=== PATIENT | female | born 1945 | race Caucasian/White ===

== ENCOUNTER 2018-01-22 10:11 | Outpatient (CLI) | payer MEDICARE | END 2018-01-22 10:12 | disposition home or self-care (01) | LOC: BICMAMMO 10:11 | PROVIDERS: ATTEND Family Medicine | DX: Z12.31 Encounter for screening mammogram for malignant neoplasm of breast (principal); Z00.00 Encounter for general adult medical examination without abnormal findings; R92.1 Mammographic calcification found on diagnostic imaging of breast; M85.852 Other specified disorders of bone density and structure, left thigh; M85.851 Other specified disorders of bone density and structure, right thigh; Z78.0 Asymptomatic menopausal state; Z80.3 Family history of malignant neoplasm of breast | CPT/HCPCS: 77063; 77067; 77080 ==

== ENCOUNTER 2019-01-23 09:08 | Outpatient (CLI) | payer MEDICARE ==
--- NOTE | 2019-01-23 11:57 | MMO ---
Bilateral MAMMO Bilat Screen DDI+ANKIT. CLINICAL HISTORY: Patient is 73 years old and is seen for screening. The patient has the following family history of breast cancer: paternal aunt. The patient has no personal history of cancer. VIEWS: The views performed were: bilateral craniocaudal with tomosynthesis and bilateral mediolateral oblique with tomosynthesis. FILMS COMPARED: The present examination has been compared to prior imaging studies performed at [facility] on 01/22/2018, at [facility] on 02/14/2009, and at [facility] on 08/15/2007. MAMMOGRAM FINDINGS: There are scattered fibroglandular densities. Benign calcifications are noted bilaterally. There are no suspicious masses, suspicious calcifications, or new areas of architectural distortion. IMPRESSION: THERE IS NO MAMMOGRAPHIC EVIDENCE OF MALIGNANCY. A ROUTINE FOLLOW-UP MAMMOGRAM IN 1 YEAR IS RECOMMENDED. THE RESULTS OF THIS EXAM WERE SENT TO THE PATIENT. ACR BI-RADS Category 2 - Benign finding MAMMOGRAPHY NOTE: 1. A negative mammogram report should not delay a biopsy if a dominant of clinically suspicious mass is present. 2. Approximately 10% to 15% of breast cancers are not detected by mammography. 3. Adenosis and dense breasts may obscure an underlying neoplasm.
== END 2019-01-23 09:09 | disposition home or self-care (01) ==
LOC: BICMAMMO 09:08
PROVIDERS: ATTEND Family Medicine
DX: Z12.31 Encounter for screening mammogram for malignant neoplasm of breast (principal)
CPT/HCPCS: 77063; 77067

== ENCOUNTER 2019-03-12 11:31 | Outpatient (CLI) | payer MEDICARE ==
--- NOTE | 2019-03-12 14:36 | CT ---
CT ABDOMEN AND PELVIS WITH AND WITHOUT IV CONTRAST: HISTORY: Left lower quadrant pain. The patient was premedicated for iodine allergy. COMPARISON: Report from CT scan of 11/21/2017 is submitted from [facility]. No images are sub mitted for comparison. FINDINGS: The lung bases are unremarkable. The liver, spleen, and pancreas and right adrenal gland are normal. There is a 1 cm nodule arising from the left adrenal gland with an attenuation value of 3 Hounsfiel d units on the noncontrasted images, consistent with a benign adenoma. The gallbladder is not visual ized. No calculi are seen in the kidneys, ureters, or the urinary bladder. No hydroureteral nephrosis is n oted on either side. Bilateral renal masses are noted. These masses are hypodense and demonstrate n o postcontrast enhancement. No significant calcifications are seen. Thin internal septations cannot be excluded. The largest of these measure 3.2 cm arising from the inferior pole of the right kidney , 5.2 cm arising from the inferior pole of the left kidney, and 1.4 cm arising from the outer cortex of the left mid kidney. There is normal contrast excretion into the ureters and urinary bladder. No free air, free fluid, or lymphadenopathy is seen in the abdomen or pelvis. There are vascular lance cifications without evidence of aneurysmal dilatation of the abdominal aorta. The small bowel loops are not abnormally dilated. There is colonic diverticulosis without evidence of diverticulitis. A neurostimulator device is seen posterior to the L5 vertebra on the left. IMPRESSION: 1. Left adrenal adenoma. 2. No CT evidence of urinary calculi or obstruction. 3. Bilateral renal masses with benign characteristics. Renal ultrasound would be helpful. 4. Colonic diverticulosis. POS: TPC
== END 2019-03-12 11:32 | disposition home or self-care (01) ==
LOC: CT 11:31
PROVIDERS: ATTEND Family Medicine
DX: R10.32 Left lower quadrant pain (principal); N28.1 Cyst of kidney, acquired; D35.02 Benign neoplasm of left adrenal gland; N28.89 Other specified disorders of kidney and ureter; K57.30 Diverticulosis of large intestine without perforation or abscess without bleeding
CPT/HCPCS: 74178; 82565

== ENCOUNTER 2019-03-19 13:09 | Outpatient (CLI) | payer MEDICARE ==
--- NOTE | 2019-03-19 14:16 | ULT ---
ULTRASOUND RETROPERITONEUM COMPLETE: (RENAL) 03/19/19 HISTORY: 73-year-old female with bilateral renal masses found on CT. At least some are cysts. One of them is indeterminate. FINDINGS: Right kidney: 10 x 6 x 4.5 cm. Left kidney: 10.5 x 5 x 4.5 cm. No hydronephrosis bilaterally. 2.5 x 2 x 2 cm cyst exophytically protruding from right renal lower pole. 5 x 4 x 4.5 cm pedunculated cyst exophytically protruding from left renal lower pole. Both were demonstrated on the CT. On that CT, there was an exophytic, approximately 1.5 cm mass arising from the anterior cortical surf jaquan of the left renal mid-lower pole. That had a density of approximately 40 HU. That particular lesi on is too small to visualize on ultrasound. The urinary bladder appears normal. IMPRESSION: 1. Bilateral exophytic renal cysts, one on each side, 2.5 cm on the right and 5 cm on the left. 2. The much smaller lesion with density of 40 HU arising from the surface of the left kidney on CT of 03/12/19 is too small to be visible on the ultrasound. Recommend serial follow-up CT's with and without contrast (renal mass protocol), beinning in six months. It may represent a very small hemorrh agic renal cyst, but small renal cell carcinoma is not entirely excluded. SCOTT Garcia POS: JOHANA
== END 2019-03-19 13:10 | disposition home or self-care (01) ==
LOC: BICULT 13:09
PROVIDERS: ATTEND Family Medicine
DX: N28.1 Cyst of kidney, acquired (principal); N28.9 Disorder of kidney and ureter, unspecified
CPT/HCPCS: 76770

== ENCOUNTER 2019-03-27 09:03 | Inpatient (IN) | payer MEDICARE ==
[2019-03-27 09:51] LABS: #Basophils 0.1 thou/uL (0.0-0.2); #Eosinphils 0.2 thou/uL (0.0-0.7); #Lymphocytes 1.5 thou/uL (1.20-3.40); #Monocytes 0.7 thou/uL (0.11-0.59); #Neutrophils 3.1 thou/uL (1.40-6.50); %Basophils 1.7 % (0.0-1.0); %Eosinophils 3.5 % (0.0-10.0); %Lymphocytes 26.4 % (21.0-51.0); %Monocytes 12.1 % (0.0-10.0); %Neutrophils 56.4 % (42.0-75.0); Mean Corpuscular HGB CONC 34.3 g/dL (32.0-36.0); Mean Corpuscular Volume 93.4 fL (78.0-98.0); Mean Platelet Volume 7.7 fL (7.4-10.4); Platelet Count 235 thou/uL (130-400); RBC Distribution Width 11.6 % (11.5-14.5); Red Blood Cell (RBC) Count 4.36 mill/uL (4.20-5.40); White Blood Cell (WBC) Count 5.6 thou/uL (4.8-10.8)
[2019-03-27] MEDS ORDERED: metroNIDAZOLE 500 MG/100 ML BAG ONE ×2 (09:52→10:11)
[2019-03-27] MEDS ORDERED: Morphine 4 MG/ML VIAL ONE (10:11)
[2019-03-27 10:13] LABS: ALT (SGPT) 18 U/L (8-55); AST (SGOT) 17 U/L (5-34); Albumin 3.9 g/dL (3.4-4.8); Alkaline Phosphatase 76 U/L (40-150); Anion Gap 12 mmol/L (10-20); BUN (Urea Nitrogen) 19 mg/dL (9.8-20.1); Bilirubin, Total 0.5 mg/dL (0.2-1.2); Calc. Creatinine Clearance 0 mL/min (70-130); Calcium 9.2 mg/dL (7.8-10.44); Carbon Dioxide 25 mmol/L (23-31); Chloride 103 mmol/L (98-107); Estimated GFR-MDRD 73; Globulin 3.1 g/dL (2.4-3.5); Glucose 94 mg/dL (83-110); Lipase 10 U/L (8-78); Potassium 3.7 mmol/L (3.5-5.1); Sodium 136 mmol/L (136-145)
[2019-03-27] MEDS ORDERED: MEROPENEM 1 GM/50 ML 1 GM in Premix Bag 1 BAG IVPB SCH ×2 (10:15→14:00)
--- NOTE | 2019-03-27 11:41 | HP ---
PRIMARY CARE PHYSICIAN: Dr. Jero Subramanian. REASON FOR ADMISSION: Sent by primary care physician for lower abdominal pain for evaluation of IV antibiotic therapy. HISTORY OF PRESENT ILLNESS: A 73-year-old female, who has history of hypertension and who reports that she has a history of several recurrent episodes of diverticulitis requiring short course of antibiotic therapy and she feels better. She does not remember how many episodes. She had diverticulitis in her past, but she reports too many times. This patient most recently had abdominal pain, which was predominantly in the left lower quadrant. At that time, primary care physician ordered CT abdomen and pelvis, which was about in February 09, 2018 and the patient was given Augmentin for 10 days. Since then, the patient was not taking any antibiotic therapy, but her lower abdominal pain predominantly in left lower quadrant was keep on getting worse. For almost one month, she was not on antibiotic therapy or any specific therapy and she was thinking herself that she has diverticulitis and she saw her family physician in [place], who is general practitioner, who advised her to go to ER for IV antibiotic therapy. The patient was evaluated by Dr. Jero Subramanian and he sent this patient to ER for evaluation of IV antibiotic therapy. The patient reports that 1-1/2 months ago she was in [place] for vacation and at that time, she was eating different kind of foods and since then her abdominal pain has precipitated. She never had any hematochezia. She never had any weight loss. She never had any nausea, vomiting, fever, chills. She denies any abdominal distention. The patient does have varicose vein and she reports intermittent ankle swelling. The patient does have allergy to IV contrast and she does not want to go for further IV contrast. Her last IV contrast CT abdomen study was done in October 2017 in [place]. The patient does not have any recent colonoscopy. She denies any family history of colon cancer. She denies any UTI symptoms. She does report constipation and sometimes diarrhea. She feels abdominal distention subjectively and she does report some nausea, but no vomiting. REVIEW OF SYSTEMS: CONSTITUTIONAL: Negative for weight loss or gain, ability to conduct usual activities. SKIN: Negative for rash, itching. EYES: Negative for double vision, pain. ENT/MOUTH: Negative for nose bleeding, neck stiffness, pain, tenderness. CARDIOVASCULAR: Negative for palpitations, dyspnea on exertion, orthopnea. RESPIRATORY: Negative for shortness of breath, wheezing, cough, hemoptysis, fever or night sweats. GASTROINTESTINAL: Negative for poor appetite, abdominal pain, heartburn, nausea, vomiting, constipation, or diarrhea. GENITOURINARY: Negative for urgency, frequency, dysuria, nocturia. MUSCULOSKELETAL: Negative for pain, swelling. NEUROLOGIC/PSYCHIATRIC: Negative for anxiety, depression. ALLERGY/IMMUNOLOGIC: Negative for skin rash, bleeding tendency. Please see my HPI for pertinent positive and negative. All other review of systems reviewed and negative except as mentioned in HPI. PAST MEDICAL HISTORY: History of recurrent diverticulitis, colonic diverticulosis, hypertension, history of hepatitis A. PAST SURGICAL HISTORY: Cholecystectomy, hysterectomy, knee surgery, rotator cuff repair, lumbar spine surgery, toe surgery. PAST PSYCHIATRIC HISTORY: Reviewed and negative. SOCIAL HISTORY: The patient drinks alcohol socially. She denies any tobacco abuse. She denies any other illicit drug abuse. FAMILY HISTORY: No strong family history of premature coronary artery disease, stroke, or cancer. ALLERGIES: THE PATIENT IS ALLERGIC TO CIPRO, SULFA DRUGS WELL IODINE CONTRAST. EMERGENCY ROOM COURSE: The patient has received meropenem and Flagyl IV fluid and morphine 4 mg. CURRENT HOME MEDICATION: Valsartan with hydrochlorothiazide 160/25 one tablet p.o. daily. PHYSICAL EXAMINATION: VITAL SIGNS: Currently, blood pressure 147/82, pulse 81, respiratory rate 19, temperature 98.1, saturation 95% on room air. Weight 90.7 kg. GENERAL: The patient is currently alert and oriented. No acute distress. HEENT: Head; normocephalic, atraumatic. Eyes; pupils round, reactive to light. Extraocular muscles are intact. ENT; oropharynx within normal limits. Moist mucous membranes. No oral lesion. No pharyngeal erythema. No exudate. NECK: Supple. No JVD. No thyromegaly. No carotid bruit. No jugular venous distention. LUNGS: Clear to auscultation without any rhonchi or rales. CARDIAC: S1, S2 regular. No murmur. No gallop. No rub. ABDOMEN: The patient does have left lower quadrant mild discomfort on deep palpation, but no rebound tenderness. No guarding. No rigidity. No peritoneal sign. No distention. Bowel sounds present. No organomegaly. No mass. BACK: No CVA tenderness. UPPER EXTREMITIES: Passive movement of all joints are normal. Lower extremity, no edema. Good distal pulsation. SKIN: No skin rash. HEMATOLOGICAL SYSTEM: No lymphadenopathy. NEUROLOGIC: Nonfocal examination. The patient does have a varicose vein on the lower extremity with stress ankle edema noted. SIGNIFICANT LABORATORY DATA: CBC; WBC 5.6, hemoglobin 14.0, platelet 235. BMP; sodium 136, potassium 3.7, chloride 103, carbon dioxide 25, BUN 19, creatinine 0.78, glucose 94, calcium 9.2. Lactic acid 1.4. LFT; AST 17, ALT 18, alkaline phosphatase 76, albumin 3.9, lipase 10. The patient had CT abdomen and pelvis on March 12, 2019. At that time, the patient was found with diverticulosis, bilateral renal mass. The patient also had an abdomen ultrasound with renal ultrasound, which showed exophytic renal cyst. ASSESSMENT/PLAN: Impression; 1. Lower abdominal pain. The patient has clinical diagnosis of diverticulitis and she was given 10 days of Augmentin therapy without any significant improvement. The patient had most recent CT abdomen and pelvis on March 12, 2019, which showed diverticulosis without any diverticulitis. At this point, primary care physician sent this patient for evaluation of IV antibiotic therapy. She does not have any sepsis picture. She does not have any leukocytosis. She does not have any abnormal laboratory pictures at this point, and clinically she is stable. We will consult rotor pilot for further evaluation to see if patient needs any repeat imaging, clinically does not suspect any complication like abscess perforation. We will ask rotor pilot if further colonoscopy needed or not for rule out any other etiology for her recurrent diverticulitis. At this point, we will presumably continue with meropenem and Flagyl, gentle IV fluid, and pain control with morphine. Further investigation and treatment will defer to rotor pilot. 2. Hypertension. We will continue valsartan with hydrochlorothiazide 160/25 one tablet p.o. daily. 3. Deep venous thrombosis prophylaxis. Lovenox 40 mg subcu daily. 4. GI prophylaxis. Pepcid 20 mg p.o. b.i.d. CODE STATUS: The patient is full code. The patient's daughter is her surrogate decision maker. DISPOSITION PLAN: Based on clinical course. We are expecting the patient's stay in hospital more than 48 hours. Plan of care discussed with the patient and family member at bedside. We will also do stool for infection workup to rule out any infectious etiology. Job ID: [id number]
[2019-03-27 13:30] LABS: Bilirubin Negative (Negative); Blood, Urine Negative (Negative); Clarity CLEAR (Clear); Glucose, Urine (Dipstick) Negative (Negative); Leukocyte Negative (Negative); Nitrite Negative (Negative); Protein, Urine (Dipstick) Negative (Neg-Trace); Specific Gravity, Urine 1.009 (1.002-1.036); Urobilinogen 0.2 mg/dL (0.2-1.0); pH, Urine 6.5 (5.0-9.0)
[2019-03-27] MEDS ORDERED: Senokot S 8.6-50 MG TAB PO PRN (14:03)
[2019-03-27] MEDS ORDERED: Bisacodyl 5 MG TAB PO PRN (14:03)
[2019-03-27] MEDS ORDERED: Ondansetron PF 4 MG/2 ML Vial IVP PRN (14:03)
[2019-03-27] MEDS ORDERED: Bisacodyl 10 MG SUPP PR PRN (14:03)
[2019-03-27] MEDS ORDERED: Zolpidem Tartrate 5 MG TAB PO PRN (14:03)
[2019-03-27] MEDS ORDERED: Acetaminophen 325 MG TAB PO PRN (14:03)
[2019-03-27] MEDS ORDERED: Morphine 4 MG/ML VIAL SLOW IVP PRN (14:03)
[2019-03-27 14:29] VITALS: BMI 35.2
[2019-03-27] MEDS: Sodium Chloride 0.9% 1,000 ML IV SCH (14:55)
[2019-03-27] MEDS ORDERED: GoLYTELY 4,000 ml Bottle PO SCH (15:30)
[2019-03-27] MEDS: metroNIDAZOLE 500 MG in Premix Bag 1 BAG IVPB SCH (17:37)
[2019-03-27] MEDS: Famotidine 20 MG TAB PO SCH (20:09)
[2019-03-27] MEDS: MEROPENEM 1 GM/50 ML 1 GM in Premix Bag 1 BAG IVPB SCH (20:09)
[2019-03-27] MEDS: Ondansetron ODT 4 MG TAB PO PRN (21:52)
[2019-03-27] MEDS: Calcium Carbonate 500 MG ChewTAB PO PRN (21:53)
--- NOTE | 2019-03-27 22:10 | CON ---
DATE OF CONSULTATION: 03/27/2019 REQUESTING PHYSICIAN: Rivas Crane MD. REASON FOR CONSULTATION: Abdominal pain and diverticulitis. HISTORY OF PRESENT ILLNESS: Carmita Tse is a very pleasant 73-year-old woman who was admitted to the hospital today with persistent left lower quadrant pain over the past month and a half. She has a history of multiple abdominal surgeries including cholecystectomy at age 20, hysterectomy with unilateral oophorectomy and then subsequent repeat surgery for lysis of adhesions and removal of the other ovary. She says that at that time, she had to have a short segment of colon removed as well. She says this was many years ago. She has not had a colonoscopy for many years, at least 10 years. She reports that she has had recurrent episodes of diverticulitis in the past. Usually, she will be treated with a course of antibiotics and symptoms will resolve. She says back in 10/2017 in [place], she had a CT scan and this documented acute diverticulitis. About a month and a half ago, she started having left lower quadrant pain while on a trip to [place], this failed to resolve with dietary measures. She saw her PCP and was given a course of Augmentin which she finished for 10 days. She says that unfortunately, symptoms did not really resolve or even improve throughout the course of antibiotics. She continued to have persistent left lower quadrant pain really without any significant diarrhea or constipation. No melena or hematochezia. No nausea or vomiting. Then 2 weeks ago, she finally had a CT of the abdomen and pelvis, this was performed with contrast, she was premedicated because she has a contrast allergy. The CT scan showed colonic diverticulosis but actually no evidence of diverticulitis at that time. She does have bilateral renal cyst and the followup ultrasound confirmed this. However, the left lower quadrant pain has persisted. She was admitted today for ongoing pain and was started on IV antibiotics with meropenem and Flagyl. She is hesitant to undergo any repeat imaging with contrast due to her contrast allergy. Labs show normal white blood cell count. She is afebrile and hemodynamically stable. REVIEW OF SYSTEMS: Full review of systems including constitutional, head, eyes, ears, nose, throat, GI, , cardiovascular, respiratory, musculoskeletal, neurologic systems is negative except as noted in the HPI. PAST MEDICAL HISTORY: 1. Hypertension, hepatitis A, knee surgery, back surgery, rotator cuff repair, cholecystectomy at age 20, hysterectomy with unilateral oophorectomy, laparoscopy with lysis of adhesions and unilateral oophorectomy, evidently with segmental colon resection at that time, years ago. 2. Recurrent diverticulitis, last demonstrated on CT scan 10/2017. SOCIAL HISTORY: Alcohol use is social. No smoking. No drug use. FAMILY HISTORY: Negative for colon malignancy. ALLERGIES: CIPROFLOXACIN, SULFA, IV CONTRAST. OUTPATIENT MEDICATIONS: Valsartan/hydrochlorothiazide. INPATIENT MEDICATIONS: 1. IV meropenem. 2. IV Flagyl. 3. IV morphine p.r.n. PHYSICAL EXAMINATION: VITAL SIGNS: Temperature 97.9, pulse 59, blood pressure 143/82, 94% oxygen saturation on room air. GENERAL: A 73-year-old woman lying in bed comfortably, appearing well, in no acute distress. SKIN: No jaundice, no rashes were palpable. HEENT: Eyes, no scleral icterus. Extraocular movements intact. ENT; mucous membranes moist. No oral lesions. LYMPH: No submandibular, supraclavicular lymphadenopathy. Thyroid nontender to palpation. HEART: Regular rate and rhythm. LUNGS: Clear to auscultation bilaterally. ABDOMEN: Bowel sounds are hypoactive, but present. The abdomen is soft. There is tenderness to palpation in the left lower quadrant. No guarding or rebound tenderness. No hernia defect appreciated. Surgical scars are well healed. EXTREMITIES: No peripheral edema. VESSELS: Radial pulses 2+ bilaterally. NEURO: Cranial nerves 2 through 12 intact bilaterally. No focal deficits. LABORATORY STUDIES: WBC 5.6, hemoglobin 14.0, platelets 235. BUN 19, creatinine 1.78. LFTs all normal. Lipase normal at 10, lactic acid 1.4. Urinalysis negative. IMAGING STUDIES: She had a CT of the abdomen, pelvis with IV contrast 2 weeks ago on 03/12/2019. This showed diverticulosis with no evidence of diverticulitis. She had normal appearing liver, spleen and pancreas. Absent gallbladder. There was a 1 cm left adrenal adenoma, bilateral renal masses, and a left-sided neuro stimulator posterior to L5. On 03/19/2019, renal ultrasound showed multiple bilateral renal cysts as well as a smaller left renal lesion which was too small to characterize. ASSESSMENT AND PLAN: 1. Left lower quadrant pain, persistent over the past month and a half. 2. Prior history of diverticulitis. The patient's symptoms could certainly be consistent with recurrent diverticulitis. However, she failed to have any improvement with a full course of Augmentin several weeks ago, and notably, [address] with contrast did not show any evidence of diverticulitis. This is while the patient has remained symptomatic. It is possible she may be dealing more with a postinfectious irritable bowel syndrome rather than persistent diverticulitis. Also, consider other possible colonic pathology. Consider also the possibility that symptoms are related to intraabdominal adhesive disease and irritable bowel syndrome. Given that there was no evidence of inflammation on her recent CT scan, I think the best step at this point would be to proceed with diagnostic colonoscopy this hospital admission. We will try to avoid further IV contrast administration given her allergy. This is what the patient desired as well. We will plan for bowel preparation this evening and diagnostic colonoscopy tomorrow. In the meantime, I agree with the IV antibiotics for now. Further recommendations following colonoscopy. The risks and benefits of the procedure were discussed with the patient. She desires to proceed. Thank you for the consultation. Please call anytime with questions or concerns. Job ID: [id number]
[2019-03-28] MEDS: Calcium Carbonate 500 MG ChewTAB PO PRN (01:25)
[2019-03-28] MEDS: metroNIDAZOLE 500 MG in Premix Bag 1 BAG IVPB SCH ×3 (01:26→17:46)
[2019-03-28] MEDS: MEROPENEM 1 GM/50 ML 1 GM in Premix Bag 1 BAG IVPB SCH ×3 (03:43→20:53)
[2019-03-28] MEDS: Sodium Chloride 0.9% 1,000 ML IV SCH ×2 (03:44→17:56)
[2019-03-28 04:00] LABS: #Eosinphils 0.1 thou/uL (0.0-0.7); #Monocytes 0.5 thou/uL (0.11-0.59); #Neutrophils 4.5 thou/uL (1.40-6.50); %Basophils 0.5 % (0.0-1.0); %Eosinophils 1.6 % (0.0-10.0); %Lymphocytes 16.2 % (21.0-51.0); %Monocytes 7.7 % (0.0-10.0); %Neutrophils 74.1 % (42.0-75.0); Hemoglobin 13.1 g/dL (12.0-16.0); Mean Corpuscular HGB CONC 33.4 g/dL (32.0-36.0); Mean Corpuscular Hemoglobin 31.5 pg (27.0-31.0); Mean Corpuscular Volume 94.4 fL (78.0-98.0); Mean Platelet Volume 7.9 fL (7.4-10.4); Platelet Count 212 thou/uL (130-400); RBC Distribution Width 11.7 % (11.5-14.5); Red Blood Cell (RBC) Count 4.16 mill/uL (4.20-5.40); White Blood Cell (WBC) Count 6.1 thou/uL (4.8-10.8)
[2019-03-28 04:20] LABS: Anion Gap 10 mmol/L (10-20); BUN (Urea Nitrogen) 16 mg/dL (9.8-20.1); Calc. Creatinine Clearance 107 mL/min (70-130); Calcium 8.5 mg/dL (7.8-10.44); Carbon Dioxide 28 mmol/L (23-31); Chloride 104 mmol/L (98-107); Estimated GFR-MDRD 81; Glucose 110 mg/dL (83-110); Potassium 3.6 mmol/L (3.5-5.1); Sodium 138 mmol/L (136-145)
[2019-03-28] MEDS: Ondansetron ODT 4 MG TAB PO PRN (06:24)
[2019-03-28] MEDS: Enoxaparin Sodium 40 MG/0.4 ML SYRINGE SC SCH (07:38)
[2019-03-28] MEDS: Famotidine 20 MG TAB PO SCH ×2 (07:42→20:39)
[2019-03-28] MEDS: Valsartan 80 MG TAB PO SCH (07:55)
[2019-03-28] MEDS: Hydrochlorothiazide 25 MG TAB PO SCH (07:55)
[2019-03-28] MEDS ORDERED: Metoclopramide HCl 10 MG/2 ML VIAL ONE (09:21)
[2019-03-28] MEDS ORDERED: Famotidine/PF 20 mg/2ml Vial ONE (09:23)
[2019-03-28] MEDS ORDERED: metroNIDAZOLE 500 MG/100 ML BAG ONE (09:49)
[2019-03-28] MEDS ORDERED: Fentanyl 100 MCG/2 ML VIAL ONE (09:50)
[2019-03-28] MEDS ORDERED: Promethazine HCl 25 MG/ML VIAL ONE (09:50)
[2019-03-28] MEDS ORDERED: Promethazine HCl 25 MG/ML VIAL IM PRN (10:38)
[2019-03-28] MEDS ORDERED: Promethazine HCl 25 MG/ML VIAL SLOW IVP PRN (10:38)
[2019-03-28] MEDS ORDERED: Ondansetron HCl/PF 4 MG/2 ML Vial IVP PRN (10:38)
[2019-03-28] MEDS: Dicyclomine 10 MG CAP PO SCH ×3 (12:19→20:40)
--- NOTE | 2019-03-28 14:12 | PDOC.PN ---
- Subjective Encounter Start Date: 03/28/19 Encounter Start Time: 14:11 Pt seen for followup re: abdominal pain. Had colonoscopy, feels tired. - Objective Resuscitation Status - Order Detail: 03/27/19 10:43 Resuscitation Status Routine Resuscitation Status: FULL: Full Resuscitation MAR Reviewed: Yes Vital Signs & Weight: Vital Signs (12 hours) Temp Pulse Resp BP Pulse Ox 03/28/19 11:52 97.3 F L 61 18 131/76 93 L 03/28/19 11:06 97.5 F L 60 18 135/79 93 L 03/28/19 08:30 97.4 F L 59 L 16 126/60 95 03/28/19 03:50 97.5 F L 56 L 18 118/72 96 Weight Weight 205 lb I&O: 03/27/19 03/28/19 03/29/19 06:59 06:59 06:59 Intake Total 4180 Balance 4180 Result Diagrams: 03/28/19 03:42 03/28/19 03:42 Additional Labs: labs reviewed by me Phys Exam - Physical Examination Obese HEENT: moist MMs Neck: supple Respiratory: clear to auscultation bilateral Cardiovascular: RRR Gastrointestinal: soft Mild LLQ tenderness, no guarding or rigidity Neurological: moves all 4 limbs Psychiatric: normal affect Dx/Plan (1) Abdominal pain Code(s): R10.9 - UNSPECIFIED ABDOMINAL PAIN Status: Acute Comment: s/p colonoscopy, await report (2) Hypertension Code(s): I10 - ESSENTIAL (PRIMARY) HYPERTENSION Status: Chronic Comment: controlled - Plan * . Review of Systems - Review of Systems Cardiovascular: negative: chest pain, palpitations, orthopnea, paroxysmal nocturnal dyspnea, edema, light headedness Gastrointestinal: Abdominal Pain. negative: Nausea, Vomiting, Diarrhea, Constipation, Melena, Hematochezia - Medications/Allergies Allergies/Adverse Reactions: Allergies Allergy/AdvReac Type Severity Reaction Status Date / Time Influenza Virus Vaccines Allergy Mild Verified 03/27/19 14:32 Iodinated Contrast- Oral and Allergy Mild Hives Verified 03/27/19 14:26 IV Dye pneumococcal vaccine Allergy Mild Verified 03/27/19 14:32 ciprofloxacin [From Cipro] Allergy Headache Verified 05/05/14 13:41 ciprofloxacin HCl Allergy Headache Verified 05/05/14 13:41 [From Cipro] codeine Allergy RASH, Verified 05/05/14 13:41 HIVES, DIFFICULTY BREATHING ADHESIVES Allergy RASH, Uncoded 05/05/14 13:41 BLISTERING Medications: Current Medications Acetaminophen (Tylenol) 650 mg PO Q4H PRN PRN Reason: Headache/Fever/Mild Pain (1-3) Bisacodyl (Dulcolax) 10 mg PO DAILYPRN PRN PRN Reason: Constipation Bisacodyl (Dulcolax) 10 mg MI DAILYPRN PRN PRN Reason: Constipation Calcium Carbonate (Tums) 1,000 mg PO Q4H PRN PRN Reason: Heartburn or Indigestion Last Admin: 03/28/19 01:25 Dose: 1,000 mg Dicyclomine HCl (Bentyl) 10 mg PO QID [facility] Last Admin: 03/28/19 12:19 Dose: 10 mg Enoxaparin Sodium (Lovenox) 40 mg SC 0900 [facility] Last Admin: 03/28/19 07:38 Dose: Not Given Famotidine (Pepcid) 20 mg PO BID [facility] Last Admin: 03/28/19 07:42 Dose: 20 mg Hydrochlorothiazide (Hydrochlorothiazide) 25 mg PO DAILY [facility] Last Admin: 03/28/19 07:55 Dose: Not Given Sodium Chloride (Normal Saline 0.9%) 1,000 mls @ 70 mls/hr IV .[id number] [facility] Last Admin: 03/28/19 03:44 Dose: 1,000 mls Metronidazole 500 mg/ Device 100 mls @ 100 mls/hr IVPB 0200,1000,1800 [facility] Last Admin: 03/28/19 11:10 Dose: Not Given Meropenem 1 gm/ Device 50 mls @ 100 mls/hr IVPB 0400,1200,2000 [facility] Last Admin: 03/28/19 12:20 Dose: 50 mls Morphine Sulfate (Morphine) 4 mg SLOW IVP Q4H PRN PRN Reason: Pain Last Admin: 03/27/19 20:24 Dose: 4 mg Ondansetron HCl (Zofran Odt) 4 mg PO Q6H PRN PRN Reason: Nausea/Vomiting Last Admin: 03/28/19 06:24 Dose: 4 mg Ondansetron HCl (Zofran) 4 mg IVP Q6H PRN PRN Reason: Nausea/Vomiting Senna/Docusate Sodium (Senokot S) 2 tab PO BID PRN PRN Reason: Constipation Sodium Chloride (Flush - Normal Saline) 10 ml IVF Q12HR LONG Sodium Chloride (Flush - Normal Saline) 10 ml IVF PRN PRN PRN Reason: Saline Flush Valsartan (Diovan) 160 mg PO DAILY [facility] Last Admin: 03/28/19 07:55 Dose: Not Given Zolpidem Tartrate (Ambien) 5 mg PO HSPRN PRN PRN Reason: Insomnia
[2019-03-28] MEDS ORDERED: PROPOFOL 200 MG/20 ML VIAL ONE (14:42)
[2019-03-28] MEDS ORDERED: Ondansetron PF 4 MG/2 ML Vial ONE (14:42)
[2019-03-28] MEDS ORDERED: Dexamethasone 20 MG/5 ML VIAL ONE (14:42)
[2019-03-28] MEDS ORDERED: Lidocaine 1% PF 5 ML VIAL ONE (14:42)
[2019-03-28] MEDS ORDERED: Succinylcholine Chloride 20 MG/ML 10 ml SYRINGE FS ONE (14:42)
--- NOTE | 2019-03-28 16:28 | OP ---
DATE OF PROCEDURE: 03/28/2019 STRAP CUTTER SURGEON: None. PROCEDURE PERFORMED: Colonoscopy, diagnostic. INDICATIONS: 1. Left lower quadrant pain. 2. Prior history of diverticulitis. 3. History of intra-abdominal adhesive disease. 4. Last colonoscopy would have been more than 10 years ago. MEDICATIONS: See Anesthesia record. FINDINGS: After discussion of the risks, benefits, and alternatives of the procedure, informed consent was obtained and witnessed. Pre-endoscopic cardiopulmonary examination was satisfactory. Time-out was performed before sedation was achieved. Sedation was achieved with Anesthesia assistance in the endoscopy unit. The patient was under general anesthesia, endotracheally intubated. Digital rectal examination was performed, which was unremarkable. A Pentax adult colonoscope was inserted into the anus and passed forward to the cecum in the usual fashion. The cecal base was identified by the appendiceal orifice as well as the ileocecal valve. The terminal ileum was intubated and the ileal mucosa appeared normal. The colonoscope was slowly withdrawn in a gradual circumferential manner with careful examination of the entire colonic mucosa. The quality of the preparation was adequate. The colonic mucosa appears normal throughout. There were no polyps or mass lesions visualized. I was not able to discern any clear anastomosis in the colon. There is diverticulosis in the sigmoid colon, but I see no evidence of diverticulitis. Retroflexion in the rectum was unremarkable. The colonoscope was completely withdrawn and the patient allowed to recover. The patient tolerated the procedure well. There were no immediate postprocedure complications. IMPRESSION: 1. Sigmoid diverticulosis, without evidence of diverticulitis. 2. Otherwise, normal colonoscopy to the terminal ileum. 3. Consider her left lower quadrant pain is likely secondary to intraabdominal adhesive disease, or possibly secondary to postinfectious irritable bowel syndrome. RECOMMENDATIONS: 1. Antibiotics can be discontinued. 2. Advance diet as tolerated. 3. Trial of dicyclomine 10 to 20 mg by mouth 3 times daily as needed. 4. Okay for hospital discharge from a GI perspective. Job ID: [id number]
[2019-03-28] MEDS ORDERED: Triple Antibiotic Oint 1 GM Packet TOP PRN (21:46)
[2019-03-29] MEDS: Sodium Chloride 0.9% 1,000 ML IV SCH (01:06)
[2019-03-29] MEDS: metroNIDAZOLE 500 MG in Premix Bag 1 BAG IVPB SCH ×2 (01:09→08:59)
[2019-03-29] MEDS: MEROPENEM 1 GM/50 ML 1 GM in Premix Bag 1 BAG IVPB SCH (04:05)
[2019-03-29 08:54] VITALS: BP 125/74; TEMP 97.8
[2019-03-29] MEDS: Hydrochlorothiazide 25 MG TAB PO SCH (08:55)
[2019-03-29] MEDS: Dicyclomine 10 MG CAP PO SCH (08:55)
[2019-03-29] MEDS: Enoxaparin Sodium 40 MG/0.4 ML SYRINGE SC SCH (08:57)
[2019-03-29] MEDS: Valsartan 80 MG TAB PO SCH (08:58)
--- NOTE | 2019-03-29 11:23 | PRG ---
DATE OF SERVICE: 03/29/2019 SUBJECTIVE: Ms. Tse is feeling a lot better today. She denies any abdominal pain. Bowel movements are normal. No nausea or vomiting. She tolerated her breakfast just fine. OBJECTIVE: VITAL SIGNS: Temperature 97.8, pulse 73, blood pressure 125/74, and 96% oxygen saturation on room air. GENERAL: No acute distress. HEART: Regular rate and rhythm. LUNGS: Clear to auscultation bilaterally. ABDOMEN: Bowel sounds present. Soft and nontender to palpation throughout. EXTREMITIES: No peripheral edema. LABORATORY STUDIES: No new labs from this morning. Note that stool studies performed on admission did come back showing positive Campylobacter antigen. Otherwise, stool studies all negative. ASSESSMENT/PLAN: 1. Left lower quadrant pain, resolved this morning. 2. Sigmoid diverticulosis, without evidence of diverticulitis, otherwise normal colonoscopy performed yesterday. 3. Intraabdominal adhesive disease. The patient is doing well and I think can be discharged from the hospital today. I think it is likely that she did have a recent diverticulitis which was successfully treated now just experiencing some postinfectious irritable bowel syndrome, perhaps with some contribution from intraabdominal adhesive disease. No need for any other antibiotics. I think it would be reasonable for her to take dicyclomine 10 mg up to three times daily as needed. After discharge, she can follow up with me in the [facility] on an as-needed basis. GI will sign off, but please call back anytime with questions or concerns. Job ID: [id number]
== END 2019-03-29 12:35 | disposition home or self-care (01) | DRG 392 ==
LOC: ERS 09:03 → T4-B 10:10
PROVIDERS: ADMIT Internal Medicine; ATTEND Internal Medicine
PROC: 0DJD8ZZ Inspection of Lower Intestinal Tract, Via Natural or Artificial Opening Endoscopic (ICD-10-PCS; principal; 2019-03-28)
DX: K57.30 Diverticulosis of large intestine without perforation or abscess without bleeding (principal); I10 Essential (primary) hypertension; Z88.7 Allergy status to serum and vaccine; Z88.1 Allergy status to other antibiotic agents; Z91.041 Radiographic dye allergy status; Z88.5 Allergy status to narcotic agent; Z90.49 Acquired absence of other specified parts of digestive tract; Z88.2 Allergy status to sulfonamides; Z79.899 Other long term (current) drug therapy
CPT/HCPCS: 36415; 80048; 80053; 81003; 83605; 83690; 85025; 87045; 87046; 87324; 87328; 87329; 87449; 87899; J1650; J2185; J2270; J2550; J2765; J3010; Q0162; S0028

== ENCOUNTER 2023-02-20 12:28 | Outpatient (CLI) | payer MEDICARE | END 2023-02-20 12:29 | disposition home or self-care (01) | LOC: BICRAD 12:28 | PROVIDERS: ATTEND Nurse Practitioner Family | DX: M54.40 Lumbago with sciatica, unspecified side (principal); M47.816 Spondylosis without myelopathy or radiculopathy, lumbar region; Z98.1 Arthrodesis status | CPT/HCPCS: 72100 ==

== ENCOUNTER 2023-11-08 10:48 | Outpatient (CLI) | payer MEDICARE, OTHER | END 2023-11-08 10:49 | disposition home or self-care (01) | LOC: BICMRI 10:48 | PROVIDERS: ATTEND Family Medicine | DX: M79.661 Pain in right lower leg (principal) ==

== ENCOUNTER 2024-10-19 10:52 | Outpatient (CLI) | payer MEDICARE | END 2024-10-19 10:53 | disposition home or self-care (01) | LOC: BICMAMMO 10:52 | PROVIDERS: ATTEND Family Medicine | DX: Z78.0 Asymptomatic menopausal state (principal); M85.851 Other specified disorders of bone density and structure, right thigh; M85.852 Other specified disorders of bone density and structure, left thigh | CPT/HCPCS: 77080 ==